=== PATIENT | male | born 1990 | race Caucasian/White ===

== ENCOUNTER → 2017-08-25 08:12 | Outpatient (CLI) | payer OTHER, SELFPAY ==
--- NOTE | 2017-08-25 | DI.MRI.S_ITS ---
PROCEDURE: MR WRIST RT WO CON INDICATIONS: PAIN IN RIGHT WRIST TECHNIQUE: Noncontrast coronal proton density fast spin echo and T2 fast spin echo with fat saturation; coronal 3-D gradient echo, axial T1 spin echo and T2 fast spin echo with fat saturation, sagittal T1 spin echo through the wrist. COMPARISON: None. FINDINGS: Image quality: Excellent. Bones and cartilage: The carpal bones are normally aligned. No bone marrow contusions or fractures. No evidence for avascular necrosis. There is a small intraosseous ganglion cyst within the dorsal aspect of the proximal lunate. Overlying cartilage surfaces appear preserved. Carpal ligaments: There is mild partial tearing of the scapholunate ligament primarily involving the membranous and volar components. The lunotriquetral ligament demonstrates intermediate signal and is not well-visualized but appears grossly intact with no joint space widening or edema along its expected course. In the absence of intra-articular contrast, the extrinsic carpal ligaments are not well identified. On sagittal images, the pisohamate ligament appears intact. Triangular fibrocartilage complex: The triangular fibrocartilage demonstrates degeneration with a small irregular perforation adjacent to its radial attachment. The adjacent meniscal homolog appears normal in the absence of intra-articular contrast. The extensor carpi ulnaris tendon is normal in location and morphology. Tendons and soft tissues: The carpal tunnel structures appear normal, including the median nerve. The ulnar nerve appears normal within Guyon's canal. All six extensor tendon compartments demonstrate normal morphology, without pathologic tendon sheath fluid. There is a cystic lesion with indistinct margins demonstrated dorsal to the capitate measuring approximately 1.5 x 0.3 x 0.9 cm suggestive of a ganglion cyst. IMPRESSION: 1. Mild partial tearing of the scapholunate ligament. 2. Small irregular perforation in the triangular fibrocartilage adjacent to its radial attachment. 3. Small cystic lesion dorsal to the capitate suggestive of a ganglion cyst. 4. Small intraosseous ganglion cyst within the dorsal lunate proximally. Dictated by: Cayden Hernandez M.D. on 08/25/2017 at 11:23 Approved by: Cayden Hernandez M.D. on 08/25/2017 at 11:37
== END ==
PROVIDERS: Visit Provider General Practice
DX: M25.531 Pain in right wrist (principal); S63.591A Other specified sprain of right wrist, initial encounter; M67.431 Ganglion, right wrist
CPT/HCPCS: 73221

== ENCOUNTER → 2020-09-19 08:38 | Outpatient (CLI) | payer OTHER, SELFPAY ==
--- NOTE | 2020-09-19 | DI.MRI.S_ITS ---
PROCEDURE: MR TMJ WO CON INDICATIONS: JAW PAIN TECHNIQUE: Axial T1 spin echo, coronal and sagittal PD fast spin echo through the temporomandibular joints, in both the closed- and open-mouth positions. COMPARISON: None. FINDINGS: Image quality: Excellent. Right: Joint is normally aligned on closed and open-mouth positioning. Articular disk demonstrates normal location and morphology. No bony erosions or osteophytes. Trace right temporomandibular joint effusion. Left: Joint is normally aligned on closed and open-mouth positioning. Articular disk demonstrates normal location and morphology. No bony erosions or osteophytes. IMPRESSION: 1. No evidence of temporomandibular joint articular disc displacement or degeneration. 2. Trace nonspecific right temporomandibular joint effusion. Dictated by: Jane Alfaro MD, PhD on 09/19/2020 at 10:23 Approved by: Jane Alfaro MD, PhD on 09/19/2020 at 10:25
== END ==
DX: R68.84 Jaw pain (principal)
CPT/HCPCS: 70336

== ENCOUNTER → 2024-01-26 08:08 | Outpatient (CLI) | payer OTHER, SELFPAY ==
[2024-01-26 10:41] LABS: Cortisol AM (Before 10AM) 12.2 ug/dL (4.46-22.7)
[2024-01-28 07:36] LABS: Adrenocorticotropic Hormone 36.8 pg/mL (7.2-63.3)
== END ==
PROVIDERS: Referring Provider Internal Medicine Endocrinology, Diabetes & Metabolism; Visit Provider Internal Medicine Endocrinology, Diabetes & Metabolism
DX: R79.89 Other specified abnormal findings of blood chemistry (principal)
CPT/HCPCS: 36415; 82024; 82533; 82627

== ENCOUNTER → 2024-07-08 18:00 | Outpatient (CLI) | payer OTHER, SELFPAY ==
[2024-07-08 19:40] LABS: Urine N gonorrhoeae NOT DETECTED
[2024-07-08 19:41] LABS: Urine Chlamydia NOT DETECTED
== END ==
PROVIDERS: Visit Provider Chiropractor
DX: Z11.3 Encounter for screening for infections with a predominantly sexual mode of transmission (principal); R30.0 Dysuria
CPT/HCPCS: 87086; 87491; 87591